=== PATIENT | female | born 1945 | race Caucasian/White ===

== ENCOUNTER 2017-03-09 13:53 | Outpatient (CLI) | payer MEDICARE, BC ==
--- NOTE | 2017-03-09 16:42 | MMO ---
BILATERAL SCREENING MAMMOGRAM: Date: 03/09/17 HISTORY: Screening. COMPARISON: Mammograms from 2014 and 2013. TECHNIQUE: Bilateral screening CC and MLO mammograms. This patient's mammogram was interpreted with the assistance of computer-aided detection. FINDINGS: Benign calcifications in both breasts. No suspicious mass, microcalcifications, or architectural dis tortion. There are scattered fibroglandular densities. IMPRESSION: BIRADS 2: Benign Finding(s) Continued annual mammographic screening is recommended. POS: [facility]ICA
== END 2017-03-09 13:54 | disposition home or self-care (01) ==
LOC: SCSMAMMO 13:53
PROVIDERS: ATTEND Family Medicine
DX: Z12.31 Encounter for screening mammogram for malignant neoplasm of breast (principal)
CPT/HCPCS: 77067; G0202

== ENCOUNTER 2020-01-17 10:47 | Outpatient (CLI) | payer MEDICARE, BC ==
--- NOTE | 2020-01-17 11:53 | CT ---
CTA NECK WITH CONTRAST: Axial tomograms were obtained through the neck following angio protocol with multiplanar reconstructi on and 3D post processing. INDICATION: Carotid stenosis. COMPARISON: Comparison is made to CTA neck performed 01/27/2017. FINDINGS: No significant stenosis seen at the origin of the arch vessels. Right common carotid artery is patent with mild atherosclerotic change. No significant stenosis. There are atherosclerotic changes with calcification in the right bulb and proximal right ICA. There is some mild ulceration of the plaque in the right bulb similar to the prior exam. There is stenosi s of the right ICA which does not appear significantly changed from 2017. It continues to show hemod ynamically significant stenosis in the 50% range according to NASCET criteria. Left common carotid is patent without significant stenosis or atherosclerotic change. Mild atherosclerotic change in the left bulb. No significant stenosis in the left ICA. Vertebral arteries are patent and symmetric. Soft tissues of the neck appear unremarkable. IMPRESSION: Moderate atherosclerotic changes are seen in the right bulb and proximal right internal carotid arter y resulting in hemodynamically significant stenosis in the 50% range by NASCET criteria. Not signifi cantly changed from the 2017 exam. POS: [facility]
[2020-01-17] MEDS ORDERED: Iopamidol 370 76% 100 ML VIAL ONE (16:12)
== END 2020-01-17 10:48 | disposition home or self-care (01) ==
LOC: BICCT 10:47
PROVIDERS: ATTEND Thoracic Surgery (Cardiothoracic Vascular Surgery)
DX: I63.031 Cerebral infarction due to thrombosis of right carotid artery (principal)
CPT/HCPCS: 70498; 82565; Q9967

== ENCOUNTER 2020-07-17 10:12 | Outpatient (CLI) | payer MEDICARE, BC | END 2020-07-17 10:13 | disposition home or self-care (01) | LOC: BICMAMMO 10:12 | PROVIDERS: ATTEND Family Medicine | DX: Z13.820 Encounter for screening for osteoporosis (principal); M85.88 Other specified disorders of bone density and structure, other site; M85.859 Other specified disorders of bone density and structure, unspecified thigh; Z78.0 Asymptomatic menopausal state; Z12.31 Encounter for screening mammogram for malignant neoplasm of breast | CPT/HCPCS: 77063; 77067; 77080 ==

== ENCOUNTER 2021-04-19 13:33 | Inpatient (IN) | payer OTHER, MEDICARE, BC ==
[2021-04-19] MEDS ORDERED: HYDROcodone/Acetaminophen 5/325 mg Tablet ONE (14:20)
[2021-04-19] MEDS ORDERED: Morphine 4 MG/ML VIAL ONE (15:07)
[2021-04-19] MEDS ORDERED: Ondansetron PF 4 MG/2 ML Vial ONE (15:07)
[2021-04-19 15:42] LABS: #Lymphocytes 2.2 thou/uL (1.20-3.40); #Monocytes 0.9 thou/uL (0.11-0.59); #Neutrophils 11.4 thou/uL (1.40-6.50); %Basophils 0.2 % (0.0-1.0); %Eosinophils 0.3 % (0.0-10.0); %Lymphocytes 15.1 % (21.0-51.0); %Monocytes 6.1 % (0.0-10.0); %Neutrophils 78.2 % (42.0-75.0); Mean Corpuscular Hemoglobin 30.8 pg (27.0-31.0); Mean Corpuscular Volume 90.6 fL (78.0-98.0); Platelet Count 229 thou/uL (130-400); Red Blood Cell (RBC) Count 4.88 mill/uL (4.20-5.40); White Blood Cell (WBC) Count 14.6 thou/uL (4.8-10.8)
[2021-04-19 15:52] LABS: PTT 26.5 sec (22.9-36.1); Prothrombin Time 13.1 sec (12.0-14.7)
[2021-04-19 16:03] LABS: ALT (SGPT) 10 U/L (8-55); AST (SGOT) 15 U/L (5-34); Albumin 4.3 g/dL (3.4-4.8); Alkaline Phosphatase 76 U/L (40-110); Anion Gap 15 mmol/L (10-20); BUN (Urea Nitrogen) 23 mg/dL (9.8-20.1); Bilirubin, Total 1.1 mg/dL (0.2-1.2); Calc. Creatinine Clearance 0 mL/min (70-130); Calcium 9.3 mg/dL (7.8-10.44); Carbon Dioxide 19 mmol/L (23-31); Chloride 107 mmol/L (98-107); Glucose 94 mg/dL (83-110); Potassium 4.3 mmol/L (3.5-5.1); Protein, Total 7.3 g/dL (5.8-8.1); Sodium 137 mmol/L (136-145)
[2021-04-19] MEDS ORDERED: Morphine 2 MG/ML VIAL SLOW IVP PRN (16:42)
[2021-04-19] MEDS ORDERED: Ondansetron PF 4 MG/2 ML Vial IVP PRN (16:43)
[2021-04-19] MEDS ORDERED: Lorazepam 2 MG/ML VIAL SLOW IVP PRN (16:43)
[2021-04-19] MEDS ORDERED: hydrALAZINE 20 MG/ML VIAL SLOW IVP PRN (16:43)
[2021-04-19] MEDS ORDERED: Promethazine HCl 25 MG/ML VIAL IM PRN (16:43)
[2021-04-19] MEDS ORDERED: traMADol HCl 50 MG TAB PO PRN (16:45)
[2021-04-19] MEDS ORDERED: Ibuprofen 200 MG TAB PO PRN (16:51)
[2021-04-19] MEDS ORDERED: Cyclobenzaprine 10 MG TAB PO PRN (16:51)
[2021-04-19 17:03] LABS: #Basophils 0.1 thou/uL (0.0-0.2); #Eosinphils 0.1 thou/uL (0.0-0.7); #Lymphocytes 2.3 thou/uL (1.20-3.40); #Monocytes 0.8 thou/uL (0.11-0.59); #Neutrophils 9.6 thou/uL (1.40-6.50); %Basophils 0.5 % (0.0-1.0); %Eosinophils 0.4 % (0.0-10.0); %Lymphocytes 18.2 % (21.0-51.0); %Monocytes 6.2 % (0.0-10.0); %Neutrophils 74.7 % (42.0-75.0); Hemoglobin 14.8 g/dL (12.0-16.0); Mean Corpuscular HGB CONC 33.8 g/dL (32.0-36.0); Mean Corpuscular Hemoglobin 30.9 pg (27.0-31.0); Mean Corpuscular Volume 91.2 fL (78.0-98.0); Mean Platelet Volume 7.2 fL (7.4-10.4); Platelet Count 248 thou/uL (130-400); RBC Distribution Width 12.1 % (11.5-14.5); White Blood Cell (WBC) Count 12.8 thou/uL (4.8-10.8)
[2021-04-19 17:23] LABS: Anion Gap 13 mmol/L (10-20); BUN (Urea Nitrogen) 21 mg/dL (9.8-20.1); Calc. Creatinine Clearance 0 mL/min (70-130); Calcium 9.5 mg/dL (7.8-10.44); Carbon Dioxide 24 mmol/L (23-31); Chloride 106 mmol/L (98-107); Glucose 94 mg/dL (83-110); Potassium 3.9 mmol/L (3.5-5.1); Sodium 139 mmol/L (136-145)
[2021-04-19 18:28] VITALS: BMI 30.2
[2021-04-19] MEDS: Sodium Chloride 0.9% 1,000 ML IV SCH (21:01)
[2021-04-19] MEDS: Acetaminophen 500 MG TAB PO SCH ×2 (21:01→22:50)
[2021-04-19] MEDS: traMADol HCl 50 MG TAB PO SCH ×2 (21:02→22:50)
[2021-04-19] MEDS: Senokot S 8.6-50 MG TAB PO SCH (21:02)
[2021-04-19 22:14] LABS: SARS-CoV-2 NAA Rapid Test Not Detected (NotDetected)
[2021-04-20] MEDS: Sodium Chloride 0.9% 1,000 ML IV SCH (05:36)
[2021-04-20] MEDS: Acetaminophen 500 MG TAB PO SCH ×4 (05:37→23:25)
[2021-04-20] MEDS: traMADol HCl 50 MG TAB PO SCH ×4 (05:37→23:25)
[2021-04-20] MEDS ORDERED: ceFAZolin Sodium/D5W 2 GM in Premix Bag 1 BAG IVPB SCH (08:00)
[2021-04-20] MEDS: Losartan 25 MG TAB PO SCH (08:31)
[2021-04-20] MEDS ORDERED: Vancomycin 1.5 GRAM/300 ML BAG 1.5 GM in Premix Bag 1 BAG IVPB SCH (09:00)
[2021-04-20] MEDS ORDERED: ceFAZolin 2 GM/DEX 5% 100 ML BAG ONE (09:12)
[2021-04-20] MEDS ORDERED: Tranexamic Acid 1,000 MG in Sodium Chloride 0.9% 250 ML 250 ML IVPB SCH (10:00)
[2021-04-20] MEDS: Polyethylene Glycol 3350 17 GM Packet PO SCH (10:27)
[2021-04-20] MEDS: Nebivolol HCl 2.5 MG TAB PO SCH (10:27)
[2021-04-20] MEDS: Multivitamin W/ Minerals 1 TAB PO SCH (10:27)
[2021-04-20] MEDS: Senokot S 8.6-50 MG TAB PO SCH ×2 (10:27→20:11)
[2021-04-20] MEDS ORDERED: Fentanyl 100 MCG/2 ML VIAL ONE ×2 (10:58→15:02)
[2021-04-20] MEDS ORDERED: Ketamine 50 MG/ML (10ML VIAL) ONE (10:58)
[2021-04-20] MEDS ORDERED: Dexmedetomidine 200 MCG/2 ML VIAL ONE (10:59)
[2021-04-20] MEDS ORDERED: Albumin 5% 250 ML ONE (10:59)
[2021-04-20] MEDS ORDERED: Ondansetron PF 4 MG/2 ML Vial ONE (11:25)
[2021-04-20] MEDS ORDERED: ePHEDrine 50 MG/ML VIAL ONE (11:25)
[2021-04-20] MEDS ORDERED: PHENYLEPHRINE-NS 100 MCG/ML 10 ML SYRINGE ONE (11:25)
[2021-04-20] MEDS ORDERED: PROPOFOL 200 MG/20 ML VIAL ONE (11:25)
[2021-04-20] MEDS ORDERED: Lidocaine 1% PF 5 ML VIAL ONE (11:25)
[2021-04-20] MEDS ORDERED: Rocuronium Bromide 10 MG/ML (10ML VIAL) ONE (11:25)
[2021-04-20] MEDS ORDERED: Glycopyrrolate 0.2 MG/ML 5 ML SYRINGE ONE (11:25)
[2021-04-20] MEDS ORDERED: Dexamethasone 20 MG/5 ML VIAL ONE (11:25)
[2021-04-20] MEDS ORDERED: Promethazine HCl 25 MG/ML VIAL IVPB PRN (14:11)
[2021-04-20] MEDS ORDERED: HYDROmorphone 2 MG/ML VIAL SLOW IVP PRN (14:11)
[2021-04-20] MEDS ORDERED: Ondansetron HCl/PF 4 MG/2 ML Vial IVP PRN (14:11)
[2021-04-20] MEDS ORDERED: Promethazine HCl 25 MG/ML VIAL IM PRN (14:11)
[2021-04-20] MEDS ORDERED: HYDROcodone/Acetaminophen 7.5/325 mg Tablet PO PRN ×2 (16:01)
[2021-04-20] MEDS ORDERED: Ketorolac Tromethamine 30 MG/ML VIAL IVP PRN (16:01)
[2021-04-20] MEDS ORDERED: Fentanyl 100 MCG/2 ML VIAL SLOW IVP PRN (16:02)
[2021-04-20] MEDS: ceFAZolin Sodium/D5W 2 GM in Premix Bag 1 BAG IVPB SCH ×2 (16:18→23:26)
[2021-04-20] MEDS ORDERED: Vancomycin 1 GM in Premix Bag 1 BAG IVPB SCH (21:00)
[2021-04-21] MEDS: Acetaminophen 500 MG TAB PO SCH (05:01)
[2021-04-21] MEDS: traMADol HCl 50 MG TAB PO SCH ×4 (05:02→23:42)
[2021-04-21 05:53] LABS: #Lymphocytes 1.3 thou/uL (1.20-3.40); #Monocytes 0.8 thou/uL (0.11-0.59); #Neutrophils 10.1 thou/uL (1.40-6.50); %Basophils 0.1 % (0.0-1.0); %Eosinophils 0.1 % (0.0-10.0); %Lymphocytes 10.5 % (21.0-51.0); %Monocytes 6.5 % (0.0-10.0); %Neutrophils 82.9 % (42.0-75.0); Hemoglobin 11.8 g/dL (12.0-16.0); Mean Corpuscular HGB CONC 33.3 g/dL (32.0-36.0); Mean Corpuscular Hemoglobin 30.6 pg (27.0-31.0); Mean Corpuscular Volume 91.7 fL (78.0-98.0); Mean Platelet Volume 7.5 fL (7.4-10.4); Platelet Count 223 thou/uL (130-400); RBC Distribution Width 11.9 % (11.5-14.5); Red Blood Cell (RBC) Count 3.86 mill/uL (4.20-5.40); White Blood Cell (WBC) Count 12.2 thou/uL (4.8-10.8)
[2021-04-21 06:17] LABS: Anion Gap 12 mmol/L (10-20); BUN (Urea Nitrogen) 12 mg/dL (9.8-20.1); Calc. Creatinine Clearance 88 mL/min (70-130); Calcium 8.9 mg/dL (7.8-10.44); Carbon Dioxide 24 mmol/L (23-31); Chloride 106 mmol/L (98-107); Glucose 118 mg/dL (83-110); Magnesium 1.9 mg/dL (1.6-2.6); Phosphorus 3.2 mg/dL (2.3-4.7); Potassium 4.1 mmol/L (3.5-5.1); Sodium 138 mmol/L (136-145)
[2021-04-21] MEDS ORDERED: Magnesium 2 GM/50 ML 2 GM in Premix Bag 1 BAG IVPB SCH (07:15)
[2021-04-21] MEDS: Senokot S 8.6-50 MG TAB PO SCH ×2 (08:38→19:56)
[2021-04-21] MEDS: Losartan 25 MG TAB PO SCH (08:38)
[2021-04-21] MEDS: Aspirin 81 mg Enteric Coated Tablet PO SCH ×2 (08:39→19:56)
[2021-04-21] MEDS: Multivitamin W/ Minerals 1 TAB PO SCH (08:39)
[2021-04-21] MEDS: Polyethylene Glycol 3350 17 GM Packet PO SCH (08:40)
[2021-04-21] MEDS: Nebivolol HCl 2.5 MG TAB PO SCH (09:52)
[2021-04-21] MEDS ORDERED: Vancomycin 1.5 GRAM/300 ML BAG 1.5 GM in Premix Bag 1 BAG IVPB SCH (10:00)
[2021-04-21] MEDS: Acetaminophen 325 MG TAB PO SCH ×3 (11:12→23:41)
[2021-04-22] MEDS: Acetaminophen 325 MG TAB PO SCH (05:19)
[2021-04-22] MEDS: traMADol HCl 50 MG TAB PO SCH ×3 (05:19→17:55)
[2021-04-22 05:50] LABS: Hemoglobin 11.3 g/dL (12.0-16.0)
[2021-04-22] MEDS ORDERED: Acetaminophen 325 MG TAB PO SCH (07:45)
[2021-04-22] MEDS: Losartan 25 MG TAB PO SCH (09:13)
[2021-04-22] MEDS: Nebivolol HCl 2.5 MG TAB PO SCH (09:13)
[2021-04-22] MEDS: Aspirin 81 mg Enteric Coated Tablet PO SCH ×2 (09:13→20:27)
[2021-04-22] MEDS: Multivitamin W/ Minerals 1 TAB PO SCH (09:13)
[2021-04-22] MEDS: Senokot S 8.6-50 MG TAB PO SCH ×2 (09:14→20:27)
[2021-04-22] MEDS: Gabapentin 100 MG CAP PO SCH ×3 (09:14→20:26)
[2021-04-22] MEDS: Polyethylene Glycol 3350 17 GM Packet PO SCH (09:14)
[2021-04-22] MEDS: Acetaminophen 500 MG TAB PO SCH ×3 (09:15→20:31)
[2021-04-22 19:27] VITALS: BP 120/69; TEMP 98.2
== END 2021-04-22 20:35 | DRG 522 ==
LOC: ERS 13:33 → SURG A 16:42
PROVIDERS: ADMIT Surgery; ATTEND Surgery
PROC: 0SR902Z Replacement of Right Hip Joint with Metal on Polyethylene Synthetic Substitute, Open Approach (ICD-10-PCS; principal; 2021-04-20)
DX: S72.011A Unspecified intracapsular fracture of right femur, initial encounter for closed fracture (principal); Z20.822 Contact with and (suspected) exposure to COVID-19; I10 Essential (primary) hypertension; E78.5 Hyperlipidemia, unspecified; W01.0XXA Fall on same level from slipping, tripping and stumbling without subsequent striking against object, initial encounter; S50.311A Abrasion of right elbow, initial encounter; Z90.710 Acquired absence of both cervix and uterus; Z79.82 Long term (current) use of aspirin; Z79.899 Other long term (current) drug therapy
CPT/HCPCS: 36415; 71045; 72170; 80048; 80053; 83735; 84100; 85014; 85018; 85025; 85610; 85730; 86850; 86900; 86901; 93005; 96374; 96375; C1776; J1100; J2270; J2405; J2704; J3010; J3370; J3475; J3490; J7050; P9045; U0002

== ENCOUNTER 2023-01-01 10:48 | Outpatient (CLI) | payer MEDICARE | END 2023-01-01 10:49 | disposition home or self-care (01) | LOC: BICMAMMO 10:48 | PROVIDERS: ATTEND Family Medicine | DX: Z12.31 Encounter for screening mammogram for malignant neoplasm of breast (principal); Z13.820 Encounter for screening for osteoporosis; M85.852 Other specified disorders of bone density and structure, left thigh; Z78.0 Asymptomatic menopausal state; Z80.3 Family history of malignant neoplasm of breast | CPT/HCPCS: 77063; 77067; 77080 ==

== ENCOUNTER 2023-04-26 09:34 | Emergency (ER) | payer OTHER, MEDICARE ==
[2023-04-26] MEDS ORDERED: Acetaminophen 500 MG TAB ONE (09:51)
[2023-04-26] MEDS ORDERED: Morphine 4 MG/ML VIAL ONE (10:23)
== END 2023-04-26 11:05 | disposition home or self-care (01) ==
LOC: ERS 09:34
DX: S42.202A Unspecified fracture of upper end of left humerus, initial encounter for closed fracture (principal); I10 Essential (primary) hypertension; W01.0XXA Fall on same level from slipping, tripping and stumbling without subsequent striking against object, initial encounter; Z79.82 Long term (current) use of aspirin
CPT/HCPCS: 96372; J2270